=== PATIENT | male | born 2000 | race American Indian/Alaskan Native ===

== ENCOUNTER 2021-07-16 19:29 | Emergency (ER) | payer BC ==
[2021-07-16] MEDS ORDERED: NALOXONE 0.4 MG/1 ML INJ IV PRN (21:23)
--- NOTE | 2021-07-16 21:24 | Emergency Department Report ---
ED General Adult HPI - General Chief complaint: Overdose Stated complaint: UNRESPONSIVE/DRUG USE Time Seen by Provider: 07/16/21 21:15 Source: patient, family, EMS ( EMS documentation not available at time of chart dictation ), RN notes reviewed Mode of arrival: Stretcher Limitations: No Limitations, Altered Mental Status, Physical Limitation - History of Present Illness Initial comments: The patient was evaluated in the emergency department for symptoms described in the history of present illness. He/she was evaluated in the context of the global COVID-19 pandemic, which necessitated consideration that the patient might be at risk for infection with the virus that causes COVID-19. Institutional protocols and algorithms that pertain to the evaluation of patients at risk for COVID-19 are in a state of rapid change based on information released by regulatory bodies including the CDC and federal and state organizations. These policies and algorithms were followed during the patient's care in the emergency department. Please note that these policies, procedures and recommendations changed on a rapid basis. The patient is a 21-year-old gentleman, who was brought to the hospital by emergency medical services, after an episode of unresponsiveness while in the car, likely secondary to recreational Coricidin ingestion. Patient is sleepy but arousable. He complains of mild headache, but otherwise denies physical pain. He specifically states that he took the Coricidin at around 3:00 PM today, without coingestions, for purely recreational reasons, and he is adamant that he is not homicidal or suicidal. Additional history obtained from his mother, Ms. Aguilar; [phone]. She states that the patient does not have any diagnosed psychiatric history, and has not been psychiatrically hospitalized. He does not have a history of drug abuse that she is aware of, although she reports that there was an episode 6 years ago when he was 15, with the patient perhaps abusing benzodiazepines. However, prior to the reported ingestion, the patient's mother states that the patient has been at his baseline. Patient himself is sleepy, and therefore, does not describe exacerbating relieving factors or aggravating factors. -: This afternoon - Related Data Previous Rx's Medication Instructions Recorded Last Taken Type Naloxone HCl [Narcan Nasal [place]] 4 mg NS PRN PRN #1 spray 07/16/21 Unknown Rx Allergies Allergy/AdvReac Type Severity Reaction Status Date / Time No Known Allergies Allergy Unverified 07/16/21 20:09 ED Review of Systems ROS: Stated complaint: UNRESPONSIVE/DRUG USE Other details as noted in HPI Constitutional: denies: fever Eyes: denies: eye discharge ENT: denies: epistaxis Respiratory: denies: cough Cardiovascular: denies: chest pain Gastrointestinal: denies: abdominal pain Neurological: headache, weakness Psychiatric: denies: auditory hallucinations, visual hallucinations, homicidal thoughts, suicidal thoughts ED Past Medical Hx - Past Medical History Previous Medical History?: No - Surgical History Past Surgical History?: No - Social History Smoking Status: Current Every Day Smoker Substance Use Type: Marijuana - Medications Home Medications: Home Medications Medication Instructions Recorded Confirmed Last Taken Type Naloxone HCl [Narcan Nasal [place]] 4 mg NS PRN PRN #1 spray 07/16/21 Unknown Rx ED Physical Exam - General Limitations: Altered Mental Status, Physical Limitation General appearance: appears intoxicated - Head Head exam: Present: atraumatic, normocephalic - Eye Eye exam: Present: EOMI. Absent: normal appearance (Pupils are dilated and reactive to light) - ENT ENT exam: Present: normal exam, normal orophraynx, mucous membranes moist, normal external ear exam - Neck Neck exam: Present: normal inspection, full ROM. Absent: tenderness, meningis mus - Respiratory Respiratory exam: Present: normal lung sounds bilaterally. Absent: respiratory distress, wheezes, rales, rhonchi, stridor, decreased breath sounds - Cardiovascular Cardiovascular Exam: Present: regular rate, normal rhythm, normal heart sounds. Absent: bradycardia, tachycardia, irregular rhythm, systolic murmur, diastolic murmur, rubs, gallop - GI/Abdominal GI/Abdominal exam: Present: soft. Absent: distended, tenderness, guarding, rebound, rigid, pulsatile mass - Rectal Rectal exam: Present: deferred - Extremities Exam Extremities exam: Present: normal inspection, full ROM, other (2+ pulses noted in the bilateral upper and lower extremities. There is no palpable cord. negative Homans sign. Muscular compartments are soft. The pelvis is stable.). Absent: pedal edema, calf tenderness - Back Exam Back exam: Present: normal inspection. Absent: tenderness, CVA tenderness (R), CVA tenderness (L), paraspinal tenderness, vertebral tenderness - Neurological Exam Neurological exam: Present: altered, other (There is no facial droop. The tongue is midline. EOMI. 5/5 strength in 4 extremities) - Psychiatric Psychiatric exam: Present: flat affect. Absent: homicidal ideation, suicidal ideation - Skin Skin exam: Present: warm, dry, intact, normal color. Absent: rash ED Course Vital Signs 07/16/21 20:02 Temperature 98 F Pulse Rate 75 Respiratory 18 Rate Blood Pressure 124/74 O2 Sat by Pulse 100 Oximetry - Reevaluation(s) Reevaluation #1: 07/16/21 22:56 Differential diagnosis, including but not limited to: Recreational ingestion, Coricidin ingestion, overdose Assessment and plan: 21-year-old gentleman, who is currently afebrile, with reassuring vital signs, but clinically intoxicated, without history of trauma, likely secondary to report of Coricidin ingestion. He is saturating at 100% on room air. He moves 4 extremities spontaneously. He is not homicidal or suicidal. His physical examination is otherwise essentially noncontributory. Laboratory studies thus far are unremarkable, white blood cell count of 14,000 likely secondary to stress reaction. Contacted poison control center, I discussed the patient's history, physical, laboratory studies and EKG findings with Agnieszka. Advises that this is likely a minor case of Coricidin intoxication. Supportive care is recommended. She advises that it may take up to 8 hours from the time of ingestion for the patient to regain normal mental status. Supportive care is recommended for higher acuity cases. Poison Control Center to be called back should this patient decompensate. The patient presents more than 1 hour after ingestion, and is sleepy and aspiration risk, and therefore, not indicated for charcoal. The patient is cooperative, alert and oriented to name and place, and not homicidal or suicidal. He does not require a 1013 at this time. We will observe this patient pending clinical sobriety Due to his complaint of headache, a noncontrast CT scan of the brain is obtained, and is essentially unremarkable. Reevaluation #2: 07/17/21 00:48 Patient in no acute distress, resting comfortably, breathing spontaneously, saturating well on room air. Awaiting clinical sobriety Reevaluation #3: 07/17/21 01:18 The patient is reassessed. He is awake, alert, and oriented. He is markedly improved. He does not have his phone on him. He provides consent for the details of his medical care and diagnostics to be discussed with his family members. Called up his mother, Ms. Aguilar, at listed phone number, and discussed the patient's relevant findings. She states that she or her family member will come by shortly, and pick the patient up. Patient is observed in this department for hours without clinical decompensation. He is suitable for discharge at this point in time ED Medical Decision Making - Lab Data Result diagrams: 07/16/21 21:48 07/16/21 21:48 Vital Signs 07/16/21 20:02 Temperature 98 F Pulse Rate 75 Respiratory 18 Rate Blood Pressure 124/74 O2 Sat by Pulse 100 Oximetry Lab Results 07/16/21 07/16/21 07/16/21 Range/Units 21:48 21:48 21:48 WBC 14.0 H (4.5-11.0) K/mm3 RBC 5.07 H (3.65-5.03) M/mm3 Hgb 15.6 H (11.8-15.2) gm/dl Hct 44.9 (35.5-45.6) % MCV 89 (84-94) fl MCH 31 (28-32) pg MCHC 35 H (32-34) % RDW 13.6 (13.2-15.2) % Plt Count 269 (140-440) K/mm3 Sodium 138 (137-145) mmol/L Potassium 4.1 (3.6-5.0) mmol/L Chloride 101.3 (98-107) mmol/L Carbon Dioxide 25 (22-30) mmol/L Anion Gap 16 mmol/L BUN 14 (9-20) mg/dL Creatinine 0.8 (0.8-1.3) mg/dL Estimated GFR > 60 ml/min BUN/Creatinine Ratio 18 % Glucose 102 H (75-100) mg/dL Calcium 9.5 (8.4-10.2) mg/dL Magnesium 2.10 (1.7-2.3) mg/dL Total Bilirubin 1.40 H (0.1-1.2) mg/dL AST 22 (5-40) units/L ALT 14 (7-56) units/L Alkaline Phosphatase 91 (35-129) units/L Total Creatine Kinase (55-170) units/L Total Protein 7.2 (6.3-8.2) g/dL Albumin 4.7 (3.9-5) g/dL Albumin/Globulin Ratio 1.9 % Salicylates < 0.3 L (2.8-20.0) mg/dL Acetaminophen (10.0-30.0) ug/mL Plasma/Serum Alcohol (0-0.07) % 07/16/21 07/16/21 07/16/21 Range/Units 21:48 21:48 21:48 WBC (4.5-11.0) K/mm3 RBC (3.65-5.03) M/mm3 Hgb (11.8-15.2) gm/dl Hct (35.5-45.6) % MCV (84-94) fl MCH (28-32) pg MCHC (32-34) % RDW (13.2-15.2) % Plt Count (140-440) K/mm3 Sodium (137-145) mmol/L Potassium (3.6-5.0) mmol/L Chloride (98-107) mmol/L Carbon Dioxide (22-30) mmol/L Anion Gap mmol/L BUN (9-20) mg/dL Creatinine (0.8-1.3) mg/dL Estimated GFR ml/min BUN/Creatinine Ratio % Glucose (75-100) mg/dL Calcium (8.4-10.2) mg/dL Magnesium (1.7-2.3) mg/dL Total Bilirubin (0.1-1.2) mg/dL AST (5-40) units/L ALT (7-56) units/L Alkaline Phosphatase (35-129) units/L Total Creatine Kinase 140 (55-170) units/L Total Protein (6.3-8.2) g/dL Albumin (3.9-5) g/dL Albumin/Globulin Ratio % Salicylates (2.8-20.0) mg/dL Acetaminophen 5.0 L (10.0-30.0) ug/mL Plasma/Serum Alcohol < 0.01 (0-0.07) % - EKG Data -: EKG Interpreted by Nc EKG shows normal: sinus rhythm Rate: normal - EKG Data When compared to previous EKG there are: previous EKG unavailable 07/16/21 22:46 The EKG is interpreted by myself at 21: 30 Sinus rhythm, 76 bpm. Normal axis, normal P wave axis, high left ventricular voltage. The WI interval is 123 ms. The QT is 402 ms, the QTC is 4 5 4 ms The QRS is 97. - Radiology Data Radiology results: pending, report reviewed, image reviewed CT HEAD WITHOUT CONTRAST INDICATION / CLINICAL INFORMATION: headache after OD. TECHNIQUE: All CT scans at this location are performed using CT dose reduction for ALARA by means of automated exposure control. COMPARISON: None available. FINDINGS: BRAIN PARENCHYMA: No acute intracranial hemorrhage. No evidence of recent infarct. No mass effect or midline shift. VENTRICULAR SYSTEM/EXTRA-AXIAL SPACES: Ventricles are normal for age. No extra-axial fluid collection. ORBITS: Normal as visualized. SKELETAL SYSTEM/SOFT TISSUES: Normal bones and soft tissues. PARANASAL SINUSES/MASTOID AIR CELLS: No significant abnormality. ADDITIONAL FINDINGS: None. IMPRESSION: 1. No acute intracranial abnormality. Signer Name: Mason Parrish MD Signed: 07/16/2021 9:53 PM Workstation Name: [id number] Critical care attestation.: If time is entered above; I have spent that time in minutes in the direct care of this critically ill patient, excluding procedure time. ED Disposition Clinical Impression: Headache Qualifiers: Headache type: unspecified Headache chronicity pattern: episodic headache Intractability: not intractable Qualified Code(s): R51.9 - Headache, unspecified Overdose Qualifiers: Encounter type: initial encounter Injury intent: accidental or unintentional Qualified Code(s): T50.901A - Poisoning by unspecified drugs, medicaments and b iological substances, accidental (unintentional), initial encounter Disposition: 01 HOME / SELF CARE / HOMELESS Is pt being admited?: No Does the pt Need Aspirin: No Condition: Good Additional Instructions: Do not drive or operate motor vehicles for the next 6 months, or until cleared to do so by a primary care doctor. Strongly recommend that patient abstain from consumption of alcohol, tobacco, smoke products and recreational drugs. Recreational drug consumption may cause , disability, paralysis, loss of quality of life, as well as addiction. Use the Narcan medication as needed for symptoms of opioid overdose and respiratory depression. Recommend follow-up with an outpatient primary care doctor, psychiatrist, or mental health specialist within the next week. Please return to the emergency room right away with new pain, worsened pain, migration of pain, projectile vomiting, change in mental status, confusion, inability tolerate liquid feeds, new, worsened or different symptoms not present on the initial emergency room evaluation Prescriptions: Naloxone HCl [Narcan Nasal [place]] 4 mg NS PRN PRN #1 spray PRN Reason: Opioid Reversal Referrals: [facility] [Provider Group] - 3-5 Days [facility] [Outside] - 3-5 Days [facility] [Outside] - 3-5 Days Forms: Work/School Release Form(ED)
[2021-07-16 22:20] LABS: Alanine Aminotransferase 14 units/L (7-56); Albumin 4.7 g/dL (3.9-5); BUN/Creatinine Ratio 18; Blood Urea Nitrogen 14 mg/dL (9-20); Calcium 9.5 mg/dL (8.4-10.2); Hemolysis Index 7
[2021-07-16 22:26] LABS: Hematocrit 44.9 % (35.5-45.6); Hemoglobin 15.6 gm/dl (11.8-15.2); Mean Corpuscular HGB Conc 35 % (32-34); Mean Corpuscular Volume 89 fl (84-94); Platelet Count 269 K/mm3 (140-440); Red Blood Count 5.07 M/mm3 (3.65-5.03); Red Cell Distribution Width 13.6 % (13.2-15.2)
--- NOTE | 2021-07-16 22:57 | Cat Scan Report ---
CT HEAD WITHOUT CONTRAST INDICATION / CLINICAL INFORMATION: headache after OD. TECHNIQUE: All CT scans at this location are performed using CT dose reduction for ALARA by means of automated exposure control. COMPARISON: None available. FINDINGS: BRAIN PARENCHYMA: No acute intracranial hemorrhage. No evidence of recent infarct. No mass effect or midline shift. VENTRICULAR SYSTEM/EXTRA-AXIAL SPACES: Ventricles are normal for age. No extra-axial fluid collection . ORBITS: Normal as visualized. SKELETAL SYSTEM/SOFT TISSUES: Normal bones and soft tissues. PARANASAL SINUSES/MASTOID AIR CELLS: No significant abnormality. ADDITIONAL FINDINGS: None. IMPRESSION: 1. No acute intracranial abnormality. Signer Name: Mason Parrish MD Signed: 07/16/2021 10:53 PM Workstation Name: [id number]
[2021-07-17 02:43] VITALS: BP 118/82
--- NOTE | 2021-07-17 18:17 | Electrocardiograph Report ---
[facility] Test Date: 2021-07-16 Test Time: 21:29:51 Pat Name: JULIAN ORDAZ Department: Room: Gender: M Bottle Carrier: VALERY : 2000 Requested By: JATINDER ALBRIGHT Order Number: [id number] Reading MD: Chu Lora Measurements Intervals [place] Rate: 76 P: 78 MN: 123 QRS: -50 QRSD: 97 T: 69 QT: 402 QTc: 454 Interpretive Statements Sinus rhythm Left axis deviation ST elevation, consider inferior injury No previous ECG available for comparison Electronically Signed On 07-17-2021 18:17:20 EDT by Chu Lora
== END 2021-07-17 01:49 | disposition home or self-care (01) ==
LOC: ED 19:29
DX: T50.991A Poisoning by other drugs, medicaments and biological substances, accidental (unintentional), initial encounter (principal); R51.9 Headache, unspecified; F17.290 Nicotine dependence, other tobacco product, uncomplicated; Y92.89 Other specified places as the place of occurrence of the external cause
CPT/HCPCS: 36415; 70450; 80053; 80320; 82550; 83735; 85027; 93005; 99284; G0480